=== PATIENT | male | born 2000 | race Caucasian/White ===

== ENCOUNTER 2023-05-31 16:19 | Outpatient (CLI) | payer BC, SELFPAY ==
[2023-06-01 00:11] LABS: Chlamydia DNA Amplified* NOT DETECTED (No Detected); GC DNA Amplified* NOT DETECTED (No Detected)
== END 2023-05-31 16:20 | disposition home or self-care (01) ==
LOC: NFLDUCREF 16:21
PROVIDERS: PCP Family Medicine; Visit Provider Registered Nurse
DX: A64 Unspecified sexually transmitted disease (principal)
CPT/HCPCS: 87491; 87591